=== PATIENT | male | born 1945 | race Caucasian/White ===

== ENCOUNTER 2020-10-04 12:51 | Emergency (ER) | payer OTHER, MEDICARE ==
[~2020-10-04] VITALS: Ht 175.3 cm; Wt 66.4 kg
[~2020-10-04 12:51] MED LIST: ALPR0.5T8 PO; ASPI-1265 PO; LOSARTAN; MULT-1085 PO; VITAMIN D
--- NOTE | 2020-10-04 13:27 | NUR ---
CHRISTIANO SON [phone] HOME , . GABY [phone]
[2020-10-04 13:49] LABS: BASOPHILS % (AUTO) 0.6 % (0-1); EOSINOPHILS # (AUTO) 0.1 X10'3 (0-0.9); EOSINOPHILS % (AUTO) 1.2 % (0-6); HEMATOCRIT 41.6 % (42.0-52.0); HEMOGLOBIN 14.1 g/dl (14.0-17.9); LYMPHOCYTES # (AUTO) 1.7 X10'3 (1.1-4.8); LYMPHOCYTES % (AUTO) 32.3 % (21-51); MEAN CORPUSCULAR HEMOGLOBIN 34.9 PG (27.0-31.0); MEAN CORPUSCULAR HGB CONC 33.8 g/dL (33.0-36.5); MEAN CORPUSCULAR VOLUME 103.1 FL (78-98); MEAN PLATELET VOLUME 9.9 FL (7.4-10.4); MONOCYTES # (AUTO) 0.4 X10'3 (0-0.9); MONOCYTES % (AUTO) 8.2 % (2-12); NEUTROPHILS % (AUTO) 57.7 % (42-75); PLATELET COUNT 179 X10'3 (140-440); RED BLOOD COUNT 4.03 X10'6 (4.70-6.10); WHITE BLOOD COUNT 5.3 X10'3 (4.5-11.0)
[2020-10-04 14:02] LABS: ALANINE AMINOTRANSFERASE 21 U/L (12-78); ALBUMIN 3.1 G/DL (3.4-5.0); ALBUMIN/GLOBULIN RATIO 1.1 (1.1-1.5); ALKALINE PHOSPHATASE 30 IU/L (46-116); ANION GAP 10 (8-16); ASPARTATE AMINO TRANSFERASE 19 U/L (10-37); BILIRUBIN,TOTAL 0.8 MG/DL (0.1-1.0); BLOOD UREA NITROGEN 20 MG/DL (7-18); BUN/CREATININE RATIO 13.6 (5.4-32.0); CALCIUM 8.2 MG/DL (8.5-10.1); CHLORIDE 107 MMOL/L (99-107); CREATININE 1.47 MG/DL (0.60-1.10); GLUCOSE 137 MG/DL (70-104); LIPASE 159 U/L (73-393); POTASSIUM 4.2 MMOL/L (3.5-5.1); SODIUM 145 MMOL/L (135-145); TOTAL CARBON DIOXIDE 28.3 MMOL/L (24-32); TOTAL PROTEIN 5.9 G/DL (6.4-8.2); eGFR 47 ML/MIN
[2020-10-04 14:08] VITALS: BP 120/48
[2020-10-04] MEDS ORDERED: normal saline 1000ml 1,000 ML IV ONE (14:10)
[2020-10-04] MEDS ORDERED: iohexol 300mg/ml 100ml inj. ONE (14:32)
[2020-10-04 15:24] LABS: CLARITY,URINE CLEAR (Clear); COLOR,URINE YELLOW (Yellow); GLUCOSE, URINE NEGATIVE (Neg); KETONES,URINE NEGATIVE (Neg); LEUKOCYTE ESTERASE ,URINE NEGATIVE (Neg); NITRITES, URINE NEGATIVE (Neg); OCCULT BLOOD,URINE NEGATIVE (Neg); PH,URINE 5.5 (4.8-8.0); PROTEIN,URINE NEGATIVE (Neg); UA COLLECTION TYPE URINAL; UROBILINOGEN,URINE 0.2 E.U/dL (0.2-1.0)
== END 2020-10-04 16:01 | disposition home or self-care (01) ==
LOC: ER 12:52
DX: R10.30 Lower abdominal pain, unspecified (principal); R19.7 Diarrhea, unspecified; R53.1 Weakness; I10 Essential (primary) hypertension; Z79.82 Long term (current) use of aspirin; Z79.899 Other long term (current) drug therapy; Z72.89 Other problems related to lifestyle
CPT/HCPCS: 36415; 71045; 74177; 80053; 81003; 83690; 84484; 85025; 93005; 96360; 99285; J7030; Q9967

== ENCOUNTER 2022-12-17 09:52 | Emergency (ER) | payer OTHER, MEDICARE ==
[~2022-12-17] VITALS: Ht 175.3 cm; Wt 69.1 kg
[2022-12-17 10:24] VITALS: TEMP 97.1
[2022-12-17 13:31] VITALS: BP 105/52; PULSE 62; RESP 16; O2SAT 97
--- NOTE | 2022-12-17 19:00 | NUR ---
[employer] assessment reviewed by RN, approved by this RN.
== END 2022-12-17 13:05 | disposition home or self-care (01) ==
LOC: ER 09:53
DX: I95.9 Hypotension, unspecified (principal); I10 Essential (primary) hypertension; Z79.82 Long term (current) use of aspirin
CPT/HCPCS: 99285

== ENCOUNTER 2023-03-11 13:48 | Outpatient (CLI) | payer OTHER, MEDICARE ==
[~2023-03-11] VITALS: Ht 175.3 cm; Wt 74.8 kg
[2023-03-11] MEDS ORDERED: BUSP10TA11 PO (14:53)
[2023-03-11 15:12] LABS: BASOPHILS % (AUTO) 0.4 % (0-1); EOSINOPHILS # (AUTO) 0.1 X10'3 (0-0.9); EOSINOPHILS % (AUTO) 1.8 % (0-6); LYMPHOCYTES # (AUTO) 2.4 X10'3 (1.1-4.8); LYMPHOCYTES % (AUTO) 32.8 % (21-51); MEAN CORPUSCULAR HEMOGLOBIN 33.3 PG (27.0-31.0); MEAN CORPUSCULAR HGB CONC 33.8 g/dL (33.0-36.5); MEAN CORPUSCULAR VOLUME 98.5 FL (78-98); MEAN PLATELET VOLUME 8.5 FL (7.4-10.4); MONOCYTES # (AUTO) 0.5 X10'3 (0-0.9); MONOCYTES % (AUTO) 7.1 % (2-12); NEUTROPHILS # (AUTO) 4.3 X10'3 (1.8-7.7); NEUTROPHILS % (AUTO) 57.9 % (42-75); PRE OP HEMATOCRIT 41.3 % (42.0-52.0); PRE OP PLATELET COUNT 237 X10'3 (140-440); PRE OP WHITE BLOOD COUNT 7.3 10'3 (4.8-10.8); RED CELL DISTRIBUTION WIDTH 14.4 % (11.5-14.5)
[2023-03-11 15:29] LABS: ALBUMIN 3.5 G/DL (3.4-5.0); ALBUMIN/GLOBULIN RATIO 1.1 (1.1-1.5); ALKALINE PHOSPHATASE 30 IU/L (46-116); BLOOD UREA NITROGEN 28 MG/DL (7-18); BUN/CREATININE RATIO 20.3 (10.0-20.0); CALCIUM 9.1 MG/DL (8.5-10.1); CHLORIDE 103 MMOL/L (99-107); CREATININE 1.38 MG/DL (0.60-1.10); PRE OP ALT 31 U/L (30-65); PRE OP ANION GAP 7 (8-16); PRE OP AST 17 U/L (10-37); PRE OP BILIRUB, TOTAL 0.9 MG/DL (0.0-1.0); PRE OP GLUCOSE 100 MG/DL (70-104); PRE OP POTASSIUM 4.3 MMOL/L (3.4-5.1); PRE OP SODIUM 139 MMOL/L (135-145); TOTAL CARBON DIOXIDE 29.4 MMOL/L (24-32); TOTAL PROTEIN 6.8 G/DL (6.4-8.2); eGFR 50 ML/MIN
[2023-03-17] MEDS ORDERED: famotidine 20mg tablet PO ONE (05:30)
[2023-03-17] MEDS ORDERED: ringers solution, lacted 1,000 ML IV SCH (05:30)
[2023-03-17] MEDS ORDERED: cefazolin 2gm/D5W 100mL 100 ML IV ONE (05:30)
== END 2023-03-11 23:59 | disposition home or self-care (01) ==
LOC: LAB 13:48 → EDSTATUS 03-17 14:30
PROVIDERS: ATTEND Surgery
DX: Z01.818 Encounter for other preprocedural examination (principal); D49.2 Neoplasm of unspecified behavior of bone, soft tissue, and skin; I25.2 Old myocardial infarction; F43.10 Post-traumatic stress disorder, unspecified; J44.9 Chronic obstructive pulmonary disease, unspecified; F17.210 Nicotine dependence, cigarettes, uncomplicated; Z98.890 Other specified postprocedural states; Z85.46 Personal history of malignant neoplasm of prostate; Z79.899 Other long term (current) drug therapy; Z86.19 Personal history of other infectious and parasitic diseases
CPT/HCPCS: 36415; 71046; 80053; 85025; 93005; J0690; J7120

== ENCOUNTER 2023-03-17 07:47 | Observation (INO) | payer OTHER, MEDICARE ==
[~2023-03-17] VITALS: Ht 175.3 cm; Wt 75.0 kg
[~2023-03-17 07:47] MED LIST changes: -ALPR0.5T8 PO; -ASPI-1265 PO; +BUSP10TA11 PO; -LOSARTAN; -VITAMIN D
[2023-03-17] MEDS ORDERED: aspirin 81mg tab.chew PO ONE (08:00)
[2023-03-17 08:19] LABS: BASOPHILS % (AUTO) 0.4 % (0-1); EOSINOPHILS # (AUTO) 0.1 X10'3 (0-0.9); EOSINOPHILS % (AUTO) 1.7 % (0-6); HEMATOCRIT 43.8 % (42.0-52.0); HEMOGLOBIN 14.7 g/dl (14.0-17.9); LYMPHOCYTES # (AUTO) 2.5 X10'3 (1.1-4.8); LYMPHOCYTES % (AUTO) 28.4 % (21-51); MEAN CORPUSCULAR HEMOGLOBIN 33.3 PG (27.0-31.0); MEAN CORPUSCULAR HGB CONC 33.7 g/dL (33.0-36.5); MEAN CORPUSCULAR VOLUME 98.9 FL (78-98); MEAN PLATELET VOLUME 9.2 FL (7.4-10.4); MONOCYTES # (AUTO) 0.7 X10'3 (0-0.9); MONOCYTES % (AUTO) 8.2 % (2-12); NEUTROPHILS # (AUTO) 5.3 X10'3 (1.8-7.7); NEUTROPHILS % (AUTO) 61.3 % (42-75); PLATELET COUNT 250 X10'3 (140-440); RED BLOOD COUNT 4.43 X10'6 (4.70-6.10); RED CELL DISTRIBUTION WIDTH 14.2 % (11.5-14.5); WHITE BLOOD COUNT 8.6 X10'3 (4.5-11.0)
[2023-03-17] MEDS ORDERED: atropine 1 MG/1 ML vial IV ONE (08:50)
[2023-03-17] MEDS ORDERED: atropine 0.1mg/ml 10ml syringe IV ONE (08:50)
[2023-03-17 09:09] LABS: BILIRUBIN,URINE NEGATIVE (Neg); CLARITY,URINE CLEAR (Clear); COLOR,URINE YELLOW (Yellow); GLUCOSE, URINE NEGATIVE (Neg); KETONES,URINE NEGATIVE (Neg); LEUKOCYTE ESTERASE ,URINE NEGATIVE (Neg); NITRITES, URINE NEGATIVE (Neg); OCCULT BLOOD,URINE NEGATIVE (Neg); PH,URINE 6.5 (4.8-8.0); PROTEIN,URINE NEGATIVE (Neg); UROBILINOGEN,URINE 0.2 E.U/dL (0.2-1.0)
[2023-03-17 09:16] LABS: UA COLLECTION TYPE CLN CATCH MIDSTREAM
[2023-03-17 09:33] LABS: ALANINE AMINOTRANSFERASE 29 U/L (12-78); ALBUMIN 3.7 G/DL (3.4-5.0); ALKALINE PHOSPHATASE 31 IU/L (46-116); ANION GAP 8 (8-16); ASPARTATE AMINO TRANSFERASE 15 U/L (10-37); BILIRUBIN,TOTAL 1.1 MG/DL (0.1-1.0); BLOOD UREA NITROGEN 23 MG/DL (7-18); BUN/CREATININE RATIO 18.5 (10.0-20.0); CALCIUM 9.1 MG/DL (8.5-10.1); CHLORIDE 104 MMOL/L (99-107); CREATININE 1.24 MG/DL (0.60-1.10); GLUCOSE 103 MG/DL (70-104); POTASSIUM 4.3 MMOL/L (3.5-5.1); SODIUM 141 MMOL/L (135-145); TOTAL CARBON DIOXIDE 28.9 MMOL/L (24-32); TOTAL PROTEIN 7.3 G/DL (6.4-8.2); eCRCL 50 ML/MIN; eGFR 57 ML/MIN
[2023-03-17 09:46] LABS: PRO BRAIN NATRIURETIC PEPTIDE 227 PG/ML (0-450)
[2023-03-17 10:06] LABS: APTT 31 SECONDS (22-32)
[2023-03-17 10:08] LABS: INR 0.9 INR
[2023-03-17 11:18] LABS: THYROID STIMULATING HORMONE 1.33 ulU/ml (0.34-4.50)
[2023-03-17] MEDS ORDERED: acetaminophen 325mg tablet PO PRN ×2 (13:00)
[2023-03-17] MEDS ORDERED: magnesium Cl slow-release 64mg tablet PO PRN (13:00)
[2023-03-17] MEDS ORDERED: potassium Cl 20 mEq SR tablet PO PRN ×2 (13:00)
[2023-03-17] MEDS ORDERED: potassium Cl 40MEQ/1/2NS 520ml 520 ML IV PRN (13:00)
[2023-03-17] MEDS ORDERED: magnesium 4gm in 100ml NS 100 ML IV PRN (13:00)
[2023-03-17] MEDS ORDERED: magnesium 2GM in 50ml NS 50 ML IV PRN (13:00)
[2023-03-17] MEDS ORDERED: ondansetron/PF 4mg/2ml inj IV PRN (13:00)
[2023-03-17 13:32] LABS: LIPASE 41 U/L (16-77)
[2023-03-17] MEDS: normal saline 1000ml 1,000 ML IV SCH (15:12)
[2023-03-17 16:38] LABS: URINE AMPHETAMINE SCREEN NEGATIVE (Neg); URINE BARBITUATE SCREEN NEGATIVE (Neg); URINE BENZODIAZEPINES SCREEN NEGATIVE (Neg); URINE CANNABINOID SCREEN NEGATIVE (Neg); URINE COCAINE SCREEN NEGATIVE (Neg); URINE METHADONE SCREEN NEGATIVE (Neg); URINE OPIATE SCREEN NEGATIVE (Neg); URINE PHENCYCLIDINE SCREEN NEGATIVE (Neg)
[2023-03-17] MEDS: heparin, porcine 5000 units/ml vial SQ SCH (20:00)
[2023-03-18] MEDS: normal saline 1000ml 1,000 ML IV SCH ×2 (03:15→15:40)
[2023-03-18] MEDS: heparin, porcine 5000 units/ml vial SQ SCH (07:37)
[2023-03-18] MEDS ORDERED: busPIRone 5mg tablet PO SCH (08:00)
[2023-03-18 08:56] LABS: BASOPHILS % (AUTO) 0.2 % (0-1); EOSINOPHILS # (AUTO) 0.1 X10'3 (0-0.9); EOSINOPHILS % (AUTO) 1.4 % (0-6); HEMOGLOBIN 13.1 g/dl (14.0-17.9); LYMPHOCYTES # (AUTO) 2.2 X10'3 (1.1-4.8); MEAN CORPUSCULAR HEMOGLOBIN 32.9 PG (27.0-31.0); MEAN CORPUSCULAR HGB CONC 33.5 g/dL (33.0-36.5); MEAN CORPUSCULAR VOLUME 98.4 FL (78-98); MEAN PLATELET VOLUME 8.9 FL (7.4-10.4); MONOCYTES # (AUTO) 0.6 X10'3 (0-0.9); MONOCYTES % (AUTO) 8.3 % (2-12); NEUTROPHILS # (AUTO) 4.5 X10'3 (1.8-7.7); NEUTROPHILS % (AUTO) 60.1 % (42-75); PLATELET COUNT 219 X10'3 (140-440); RED BLOOD COUNT 3.96 X10'6 (4.70-6.10); RED CELL DISTRIBUTION WIDTH 13.9 % (11.5-14.5); WHITE BLOOD COUNT 7.5 X10'3 (4.5-11.0)
[2023-03-18 09:41] LABS: ALANINE AMINOTRANSFERASE 24 U/L (12-78); ALBUMIN 3.1 G/DL (3.4-5.0); ALKALINE PHOSPHATASE 29 IU/L (46-116); ANION GAP 9 (8-16); ASPARTATE AMINO TRANSFERASE 16 U/L (10-37); BILIRUBIN,TOTAL 1.1 MG/DL (0.1-1.0); BLOOD UREA NITROGEN 17 MG/DL (7-18); BUN/CREATININE RATIO 16.5 (10.0-20.0); CALCIUM 8.6 MG/DL (8.5-10.1); CHLORIDE 106 MMOL/L (99-107); CREATININE 1.03 MG/DL (0.60-1.10); GLUCOSE 101 MG/DL (70-104); SODIUM 143 MMOL/L (135-145); TOTAL CARBON DIOXIDE 28.5 MMOL/L (24-32); TOTAL PROTEIN 6.3 G/DL (6.4-8.2); eCRCL 60 ML/MIN; eGFR 70 ML/MIN
[2023-03-18 16:49] VITALS: RESP 18; O2SAT 98
[2023-03-18 17:01] VITALS: BP 145/80; PULSE 60
[2023-03-18 23:10] VITALS: TEMP 98.3
== END 2023-03-18 20:30 | disposition left against medical advice (07) ==
LOC: ER 07:47 → UNDOADMOB 13:04 → ED HOLD 13:04 → INTOOBSV 13:04 → ED HOLD 17:02
PROVIDERS: ADMIT Internal Medicine; ATTEND Internal Medicine
DX: I49.8 Other specified cardiac arrhythmias (principal); R42 Dizziness and giddiness; R53.1 Weakness; I12.9 Hypertensive chronic kidney disease with stage 1 through stage 4 chronic kidney disease, or unspecified chronic kidney disease; N18.30 Chronic kidney disease, stage 3 unspecified; F17.200 Nicotine dependence, unspecified, uncomplicated; F43.10 Post-traumatic stress disorder, unspecified; Z53.29 Procedure and treatment not carried out because of patient's decision for other reasons; Z79.899 Other long term (current) drug therapy
CPT/HCPCS: 36415; 70450; 71045; 72131; 72192; 80053; 80305; 81003; 83605; 83690; 83735; 83880; 84145; 84443; 84484; 85025; 85610; 85651; 85730; 93005; 93306; 93926; 93971; 96361; 96372; 96374; 99285; G0378; J0461; J1644; J7030

== ENCOUNTER 2023-05-17 06:22 | Day surgery (SDC) | payer OTHER, MEDICARE ==
[2023-05-13 15:25] LABS: BASOPHILS % (AUTO) 0.3 % (0-1); EOSINOPHILS # (AUTO) 0.1 X10'3 (0-0.9); LYMPHOCYTES # (AUTO) 2.2 X10'3 (1.1-4.8); LYMPHOCYTES % (AUTO) 30.8 % (21-51); MEAN CORPUSCULAR HEMOGLOBIN 32.8 PG (27.0-31.0); MEAN CORPUSCULAR HGB CONC 33.4 g/dL (33.0-36.5); MEAN CORPUSCULAR VOLUME 98.3 FL (78-98); MEAN PLATELET VOLUME 8.4 FL (7.4-10.4); MONOCYTES # (AUTO) 0.6 X10'3 (0-0.9); MONOCYTES % (AUTO) 7.9 % (2-12); NEUTROPHILS # (AUTO) 4.2 X10'3 (1.8-7.7); PRE OP HEMATOCRIT 42.3 % (42.0-52.0); PRE OP HEMOGLOBIN 14.1 g/dL (14.0-17.9); PRE OP PLATELET COUNT 254 X10'3 (140-440); RED CELL DISTRIBUTION WIDTH 14.1 % (11.5-14.5)
[2023-05-13 15:33] LABS: ALBUMIN 3.4 G/DL (3.4-5.0); ALKALINE PHOSPHATASE 29 IU/L (46-116); BLOOD UREA NITROGEN 26 MG/DL (7-18); BUN/CREATININE RATIO 20.3 (10.0-20.0); CALCIUM 8.8 MG/DL (8.5-10.1); CHLORIDE 108 MMOL/L (99-107); CREATININE 1.28 MG/DL (0.60-1.10); PRE OP ALT 27 U/L (30-65); PRE OP ANION GAP 9 (8-16); PRE OP AST 15 U/L (10-37); PRE OP BILIRUB, TOTAL 0.6 MG/DL (0.0-1.0); PRE OP GLUCOSE 99 MG/DL (70-104); PRE OP POTASSIUM 4.3 MMOL/L (3.4-5.1); PRE OP SODIUM 145 MMOL/L (135-145); TOTAL CARBON DIOXIDE 28.1 MMOL/L (24-32); TOTAL PROTEIN 6.7 G/DL (6.4-8.2); eGFR 54 ML/MIN
[2023-05-17] VITALS (11 sets, daily range): BP systolic 121–146; BP diastolic 57–74; PULSE 48–68; RESP 12–16; TEMP 97; O2SAT 97–100
[~2023-05-17] VITALS: Ht 175.3 cm; Wt 73.3 kg
[2023-05-17] MEDS: cefazolin 2gm/D5W 100mL 100 ML IV ONE (05:30)
[~2023-05-17 06:22] MED LIST changes: -BUSP10TA11 PO; +BUSP5TAB3 PO; -MULT-1085 PO; +MVI; +albuterol 2.5 MG/3 ML nebule NEB ONE
[2023-05-17] MEDS ORDERED: LIDOcaine 1% (10mg/ml)w/preservative inj. 20ml MDV ONE (06:56)
[2023-05-17] MEDS: ringers solution, lacted 1,000 ML IV SCH (07:31)
[2023-05-17] MEDS: famotidine 20mg tablet PO ONE (07:31)
[2023-05-17] MEDS ORDERED: sevoflurane 250ml liquid IH ONE (07:55)
[2023-05-17] MEDS ORDERED: desflurane 240ml liquid inh. IH ONE (07:55)
[2023-05-17] MEDS ORDERED: ondansetron/PF 4mg/2ml inj ONE (07:55)
[2023-05-17] MEDS ORDERED: fentaNYL/PF 50MCG/1 ML 2ML syringe ONE (08:03)
[2023-05-17] MEDS ORDERED: midazolam 1 mg/ML 2ml injection ONE (08:03)
[2023-05-17] MEDS ORDERED: dexamethasone sod phosphate 4mg/ml inj. ONE (08:19)
[2023-05-17] MEDS ORDERED: LIDOcaine 2% (20mg/ml) 5ml vial ONE (08:19)
[2023-05-17] MEDS ORDERED: succinylcholine 20mg/ml inj IV ONE (08:20)
[2023-05-17] MEDS ORDERED: propofol inj 20 ML IV ONE (08:20)
[2023-05-17] MEDS ORDERED: ondansetron/PF 4mg/2ml inj IV PRN (08:35)
[2023-05-17] MEDS ORDERED: ringers solution, lacted 1,000 ML IV SCH (08:35)
[2023-05-17] MEDS ORDERED: hydrALAZINE 20mg/ml inj. IV PRN (08:35)
[2023-05-17] MEDS ORDERED: morphine 4 MG/ML inj SYRINge IV PRN (08:35)
[2023-05-17] MEDS ORDERED: enalaprilat dihydrate 2.5mg/2ml vial IV PRN (08:35)
[2023-05-17] MEDS ORDERED: fentaNYL/PF 50MCG/1 ML 2ML syringe IV PRN ×2 (08:35)
[2023-05-17] MEDS ORDERED: morphine 2 MG/ML inj. syringe IV PRN (08:35)
[2023-05-17] MEDS: BUPIVAcaine/PF 2.5mg/ml (0.25%) 10ml vial ONE (08:41)
[2023-05-17] MEDS: LIDOcaine 1% 30ml preserv. free vial IJ ONE (08:42)
[2023-05-17] MEDS ORDERED: acetaminophen 325mg tablet PO PRN (09:30)
== END 2023-05-17 10:16 | disposition home or self-care (01) ==
LOC: PAS 06:22
PROVIDERS: ATTEND Surgery
DX: R22.1 Localized swelling, mass and lump, neck (principal); D17.0 Benign lipomatous neoplasm of skin and subcutaneous tissue of head, face and neck; N18.30 Chronic kidney disease, stage 3 unspecified; I25.10 Atherosclerotic heart disease of native coronary artery without angina pectoris; J44.9 Chronic obstructive pulmonary disease, unspecified; F43.10 Post-traumatic stress disorder, unspecified; I25.2 Old myocardial infarction; Z85.46 Personal history of malignant neoplasm of prostate; Z79.899 Other long term (current) drug therapy
CPT/HCPCS: 21554; 36415; 80053; 85025; J0330; J0690; J1100; J2250; J2405; J2704; J3010; J3490; J7030; J7120; Z7506; Z7508; Z7512; A4215; A4618; A7000

== ENCOUNTER 2025-03-02 16:44 | Emergency (ER) | payer OTHER, MEDICARE ==
[~2025-03-02] VITALS: Ht 175.3 cm; Wt 77.4 kg
[~2025-03-02 16:44] MED LIST changes: -albuterol 2.5 MG/3 ML nebule NEB ONE
--- NOTE | 2025-03-02 16:56 | ELECTROCARDIOGRAPH REPORT ---
[facility] Test Date: 2025-03-02 Test Time: 16:49:14 Pat Name: HANNA OLVERA Department: EMERGENCY ROOM Room: Gender: M Resource Protection Specialist: PEREZ : 1945 Requested By: MARYBETH CUENCA Order Number: [id number] Reading MD: Measurements Intervals [place] Rate: 72 P: 63 MD: 160 QRS: 79 QRSD: 95 T: 53 QT: 399 QTc: 437 Interpretive Statements Sinus rhythm Supraventricular bigeminy Baseline wander in lead(s) II,III,aVF Please click the below link to view image of tracing.
--- NOTE | 2025-03-02 17:18 | Physician Documentation ---
History of Present Illness ~ Chief Complaint: Shortness of Breath Stated Complaint: SOB Time Seen by MD: 00:37 Primary Medical Doctor: Dr. Irvin [facility] This is a 79-year-old male with a history of COPD who presents POV from [facility] due to progressively worsening productive cough with shortness of breath. Date: Mar 03, 2025 Time: 00:37 Additional note by Wu Salinas, DO: I took over the care of this patient from previous physician. I reviewed any previous notes available, obtain my own history, review of systems and physical examination was performed by myself. This is a pleasant 79-year-old gentleman with a plethora of medical comorbidities, normally seen with the [facility], comes in for evaluation of shortness a breath for the last three weeks. Prior , shortness a breath exacerbated by smoking. He reports productive clear sputum. Not accompanied by chest pain. Not exertional or positional. Not really clear why he decided to come in to be evaluated today. Denies any fever or chills. Denies any other symptoms. The gentleman still smokes and states that he will never quit Medication Reconciliation Allergies: Coded Allergies: No Known Allergies (Unverified , 03/02/25) Scheduled Buspirone Hcl* (Buspar*), 1 TAB PO Q12H, (Reported) Miscellaneous Medications [Mvi], (Reported) Past Medical History Past Medical History: Hypertension, Diverticulitis, Diverticulosis, *PSYCH* Alcohol Use: Occasionally Drug Use: none Lives with: Family Review of Systems ROS As stated above in the HPI, otherwise all systems are reviewed and negative. Physical Exam Vital Signs: Temperature: 97.0, Source: Temporal, Heart Rate: 69, Respiratory Rate: 20, BP: 130/50, Pulse Oximetry: 96, Weight: 77.400 Oxygen Flow Rate: 0 Physical Exam GENERAL: Awake, alert, oriented, GCS 15, no apparent distress, non-toxic appearing, answers questions, follows commands appropriately. HEENT: Atraumatic, normocephalic, pupils equal, extraocular muscles intact, sclerae anicteric, mucus membranes moist, oropharynx is clear, no stridor. NECK: supple, full active range of motion, trachea midline, no thyromegaly, no lymphadenopathy, no JVD. CARDIOVASCULAR: regular rate/rhythm, no murmurs/gallops/rubs, Pulses are 2+ in all extremities and symmetric. Capillary refill less than 2 seconds. PULMONARY: Nonlabored, good air movement ,no respiratory distress, speaking in full sentences, clear to auscultation bilaterally, no wheezing, no ronchi, no rales, no accessory muscle use. GASTROINTESTINAL: Soft, non-tender, non-distended, normal active bowel sounds, no organomegaly, no pulsatile masses, no CVA tenderness. NEUROLOGIC: Lucid with normal mental status. Normal facial symmetry. Moves all extremities symmetrically and with purpose. No truncal ataxia. Speech is fluid without evidence of dysarthria or aphasia, no focal deficits appreciated. MUSCULOSKELETAL: There is full range of motion of all extremities. There is no joint pain or joint swelling or joint erythema. There is no muscle pain or tenderness or swelling. EXTREMITIES: warm, well-perfused, no cyanosis, no clubbing, no edema, no acute deformities. Skin: warm, dry, no rashes or lesions, no jaundice, no petechiae orpurpura. No ecchymosis. PSYCHIATRIC: Normal affect, normal insight, normal concentration. Focused exam: [] Progress Results/Orders Results/Orders Vital Signs 03/02/25 03/03/25 17:05 00:34 Temp 97.0 97.7 Pulse 69 60 Resp 20 20 B/P (MAP) 130/50 134/55 (81) Pulse Ox 96 97 O2 Flow Rate 0 0 Laboratory Tests Test 03/02/25 17:01 03/02/25 19:20 03/02/25 20:23 White Blood Count 7.0 Red Blood Count 4.11 L Hemoglobin 13.5 L Hematocrit 40.4 L Mean Corpuscular Volume 98.1 H Mean Corpuscular Hemoglobin 32.9 H Mean Corpuscular Hemoglobin Concent 33.5 Red Cell Distribution Width 13.9 Platelet Count 222 Mean Platelet Volume 8.3 Neutrophils (%) (Auto) 58.0 Lymphocytes (%) (Auto) 25.6 Monocytes (%) (Auto) 14.1 H Eosinophils (%) (Auto) 2.0 Basophils (%) (Auto) 0.3 Neutrophils # (Auto) 4.1 Lymphocytes # (Auto) 1.8 Monocytes # (Auto) 1.0 H Eosinophils # (Auto) 0.1 Basophils # (Auto) 0.0 CBC Comment Sodium Level 142 Potassium Level 4.2 Chloride Level 106 Carbon Dioxide Level 31.2 Anion Gap 5 L Blood Urea Nitrogen 41 H Creatinine 1.12 H Estimated GFR/1.73 m2 63 BUN/Creatinine Ratio 36.6 H Glucose Level 111 H Calcium Level 9.2 Troponin I High Sensitivity 6 5 5 Pro-B-Type Natriuretic Peptide 359 Albumin 3.4 Chemistry Comments Troponin I High Sens Percent Delta 16 0 Troponin I Hi Sens Absolute Change -1 0 Medical Decision Making Additional information obtaine: family Findings MSE performed in triage and patient returned to ED lobby by nursing staff to await available ED room Date: Mar 03, 2025 Time: 00:38 Facility Status: ED Holds, RME process The plan was discussed with the patient, who demonstrates clear understanding of the plan and is in agreement with the plan unless otherwise noted in the chart. All questions have been answered, all concerns were addressed unless otherwise documented. I was available throughout their ED stay for frequent reassessment and q uestions. Differential Diagnoses (considered and possible or likely): [COVID, influenza, RSV, upper respiratory infection in the top of the viruses, bacterial pneumonia, less likely CHF or ACS.] ??Differential Diagnoses (considered and unlikely, not requiring evaluation currently): [Unlikely PE] MDM Data Please see [facility] for the following: Independent Historians and external Records Re view. Historian: [Patient] Independent Historians: ?[, record review] Medication Management: [Reviewed medication list] Social History and determinants: [Reviewed] Please see the body of the note for the following: Any independent interpretations of ECG, imaging studies. All vitals signs/haemodynamics, ordered tests were independently reviewed and interpreted by myself. Nursing triage complaint and vitals reviewed, additional nursing notes were reviewed as available and I agree unless otherwise noted or documented in contradiction in the chart Vital Signs: Independently reviewed Labs: Independently interpreted Imaging: Independently interpreted Old Medical Records: Independently reviewed, see HPI for relevant summary and information Pulse Oximetry: [97%] interpreted as [normal on room air] by me Additionally notably showing: [Hemodynamics reviewed. The patient is not febrile, not tachycardic, no evidence of hypotension respiratory distress. CBC normal, no leukocytosis, no anemia, normal platelets. Chemistry is unremarkable. Three troponins are negative. BNP is below the threshold for CHF exacerbation. Chest x-ray was obtained showing no acute cardiopulmonary disease.] Tests considered but not ordered include: [Advanced imaging has been considera jose does not appear to be necessary. Echocardiogram can be done on an outpatient basis.] Social Determinants of Health Impact: Patient was evaluated in [facility], or [facility] [place] to healthcare due to below par ratio of patient to medical providers. [] Comorbid Conditions Impacting Present Evaluation and Care/Treatment: [Multiple, see list] Management Discussions with other Healthcare Providers: [None] Treatment and Disposition Medication Management (Given or considered): []. See EMR for details Consideration for Hospitalization/Escalation/Deescalation of Care: Admission for observation has been considered, [however the patient is able to tolerate p.o., their symptoms are controlled, they are able to rely on oral medications, and their chief complaint/diagnosis can be managed on outpatient basis.] ?ED Course:?[Admission for observation was offered, patient declines.] ?Shared decision making: Patient is hemodynamically stable for discharge home with follow with their primary care provider. [ ] Specific and cautious return precautions provided and discussed with full understanding. Any incidental findings were also discussed and follow up recommendations given. [] All questions answered. Patient/family were able to verbalize back return precautions. Patient/family agree to plan. Copies of imaging and laboratory studies were provided. Code status:?FULL Please see the full Electronic Medical Record for full details of nursing documentation, medications list, other records of complete past medical history and conditions, vital signs, laboratory studies, and any radiologic study interpretations by radiologists. Portions of this note were completed using [employer] dictation software and as a result there may exist minor errors in spelling. I have reviewed elements of past family and social history and agree as included in note. Heart Score: 3 Differential Dx:Considerations: Include: other (See body of the main note for differential diagnosis) Departure Disposition: HOME / SELF CARE / HOMELESS Impression: Primary Impression: Bronchitis Additional Impressions: Difficulty breathing Cough Discharge Instructions: Bronchitis Referrals: NO PRIMARY CARE PROVIDER (PCP) Prescriptions Azithromycin (Zithromax) 250 Mg Tablet 1 TAB PO UD for 5 Days, #6 TAB 2 the first day followed by 1 for days 2-5 Prov: WU SALINAS DO 03/03/25 Methylprednisolone (Medrol Dosepak) 4 Mg Tab.ds.pk 0 PO UD, #21 TAB 0 Refills take 6 Pills Day 1, 5 Pills Day 2, 4 Pills Day 3, 3 Pills Day 4, 2 Pills Day 5 and 1 pill Day 6 Prov: WU SALINSA DO 03/03/25 Benzonatate* (Benzonatate*) 100 Mg Capsule 1 CAP PO Q8H for cough for 10 Days, #30 CAP Prov: WU SALINAS DO 03/03/25 Education Educated: Patient Educated regarding: diagnosis, treatment, prognosis, need for follow up Signature Scribe Signature: No scribe Attestation: The note accurately reflects work and decisions made by me.Wu Salinas, 03/03/25 00:44 [facility] Mar 02, 2025 17:18 WU SALINAS DO Mar 03, 2025 00:42
[2025-03-02 17:35] LABS: MEAN PLATELET VOLUME 8.3 FL (7.4-10.4); RED CELL DISTRIBUTION WIDTH 13.9 % (11.5-14.5)
--- NOTE | 2025-03-02 17:39 | RADIOLOGY REPORT ---
DI CHEST,TWO VIEWS INDICATION: Cough/SOB TECHNIQUE: Two views of the chest COMPARISON: DI CHEST,SINGLE VIEW on DOS: 03/17/23 FINDINGS/IMPRESSION: LUNGS: No pleural effusion, consolidation, or pneumothorax. Peribronchial thickening, which is nonspecific however may represent infectious versus inflammatory bronchitis. MEDIASTINUM: Normal cardiac size BONES: No acute osseous abnormality. OTHER: None.
[2025-03-02 17:49] LABS: CREATININE 1.12 MG/DL (0.60-1.10); PRO BRAIN NATRIURETIC PEPTIDE 359 PG/ML (0-450); TOTAL CARBON DIOXIDE 31.2 MMOL/L (24-32); eCRCL 53 ML/MIN; eGFR 63 ML/MIN
[2025-03-03 00:34] VITALS: BP 134/55; PULSE 60; RESP 20; TEMP 97.7; O2SAT 97
[2025-03-03] MEDS ORDERED: BENZ-38 PO (00:44)
[2025-03-03] MEDS ORDERED: AZIT250T89 PO (00:44)
[2025-03-03] MEDS ORDERED: METH4TAB81 PO (00:44)
== END 2025-03-03 00:50 | disposition home or self-care (01) ==
LOC: ER 16:45
DX: J40 Bronchitis, not specified as acute or chronic (principal); J44.9 Chronic obstructive pulmonary disease, unspecified; I10 Essential (primary) hypertension; Z79.899 Other long term (current) drug therapy; Z72.89 Other problems related to lifestyle
CPT/HCPCS: 36415; 71046; 80048; 83880; 84484; 85025; 93005; 99285